=== PATIENT | male | born 1970 | race Caucasian/White ===

== ENCOUNTER 2024-10-03 10:57 | Emergency (ER) | payer OTHER, SELFPAY ==
[2024-10-03 11:12] VITALS: BP 123/87
[2024-10-03 11:28] LABS: % Basophils 0.4 % (0-2); % Eosinophils 0.6 % (0-6); % Immature Granulocytes 0.4 % (0-0.5); % Lymphocytes 14.2 % (20.5-51.1); % Monocytes 8.2 % (1.7-9.3); % Neutrophils 76.2 % (42.2-75.2); Absolute Eosinophils 0.1 10^3/uL (0-0.7); Absolute Lymphocytes 1.1 10^3/uL (1.2-3.4); Absolute Monocytes 0.7 10^3/uL (0.1-0.6); Absolute Neutrophils 6.1 10^3/uL (1.4-6.5); Hematocrit 42.2 % (39.0-52.0); Hemoglobin 14.8 g/dL (13.0-18.0); Mean Corp Hgb Conc. 35.1 g/dL (33.0-37.0); Mean Corpuscular Hgb 32.2 pg (27.0-31.0); Mean Corpuscular Volume 91.7 fL (80.0-94.0); Nucleated Red Blood Cells % 0 % (-); Platelet Count 225 10^3/uL (130-400); Red Cell Dist. Width 13.2 % (11.5-14.5)
[2024-10-03 11:50] LABS: ALT (SGPT) 33 U/L (0-50); AST (SGOT) 30 U/L (17-59); Albumin 4.1 g/dl (3.5-5.0); Alkaline Phosphatase 54 U/L (38-126); Blood Urea Nitrogen 14 mg/dl (9-20); Calcium 9.1 mg/dl (8.4-10.2); Carbon Dioxide 26 mmol/L (22-30); Chloride 103 mmol/L (98-107); Glucose 119 mg/dl (70-99); Lipase 142 U/L (23-300); Potassium 4.2 mmol/L (3.5-5.1); Sodium 137 mmol/L (135-145); Total Bilirubin 0.7 mg/dl (0.2-1.3); Total Protein 6.9 g/dl (6.3-8.2); eGFR > 60.00
[2024-10-03] MEDS: OMNIPAQUE 50 ML PO (12:51)
[2024-10-03 12:54] VITALS: BP 128/85
--- NOTE | 2024-10-03 13:20 | ED.GENMED ---
History of Present Illness
General
Chief Complaint: Abdominal Pain
Source: patient
Time Seen by Provider: 10/03/24 12:33
History of Present Illness
History of Present Illness:
54-year-old male with past medical history of hyperlipidemia and GERD presenting to the ER for evaluation of lower abdominal pain that has been ongoing for the last 3 days accompanied with a few episodes of loose stool, patient reporting pain seems
to be a little bit worse on the right lower part of his abdomen compared to the left when he presses but otherwise states at rest just has some generalized discomfort. He denies any fevers, chills, rigors, urinary symptoms, back or flank pain,
nausea or any other concerns. Denies any history of similar. Surgical history noncontributory. Patient does note he has had a colonoscopy in the past which did not reveal any abnormalities. He does note that patient's daughter was recently
diagnosed with ulcerative colitis which was a new diagnosis for family members.
Past History
Past History
ED Past Medical History: GERD, Hypercholesterolemia and Psychiatric
ED Past Surgical History: Orthopedic
Social History
Tobacco: Non-smoker
Alcohol: Occasional
Drug: None
Personal:
Living: with family
Employment: Employed
Review of Systems
Review of Systems
All Other Systems: ROS reviewed and negative except as documented in HPI and ROS
Phy Exam
Physical Exam
Physical Exam:
GENERAL: Alert , in no apparent distress
EYE: clear conjunctiva b/l
HEAD: NCAT
ENT: mmm.
CARDIAC: Regular rate and rhythm .
LUNGS: Clear breath sounds bilaterally, no acute respiratory distress, no wheezes/rales/rhonchi
ABDOMEN: Soft, mild tenderness within the right lower quadrant and suprapubic region, no r/g, no cvat
NEUROLOGICAL: Alert and oriented
SKIN: Warm and dry, skin intact.
MUSCULOSKELETAL: No edema, well perfused.
PSYCH: Normal and appropriate interaction.
Scores
Heart Failure Risk
Heart Failure Risk Score: Not Applicable
Heart Score for Chest Pain Patients
STEMI patient?: Not applicable
Withdrawal Assessment of Alcohol
Withdrawal Assessment Completed?: Not applicable
Course
Orders/Labs/Results
Orders:
Orders
10/03/24 11:18
Complete Blood Count/With Diff Urgent
Comprehensive Metabolic Panel Urgent
Lipase Urgent
10/03/24 12:35
CT Abd/pel W Iv And Oral Contr Urgent
Comment:
Reason For Exam: diffuse lower abd pain
Iohexol [Omnipaque] See Protocol PO NOW STA
10/03/24 13:59
Urinalysis Reflex To Culture Urgent
Date Specimen was Collected: 10/03/24
Time Specimen was Collected: 13:47
Abnormal Lab Results
10/03/24
11:18
RBC 4.60 L 10^6/uL
(4.70-6.10)
MCH 32.2 H pg
(27.0-31.0)
Absolute Lymphs (auto) 1.1 L 10^3/uL
(1.2-3.4)
Absolute Monos (auto) 0.7 H 10^3/uL
(0.1-0.6)
Neutrophils % 76.2 H %
(42.2-75.2)
Lymphocytes % 14.2 L %
(20.5-51.1)
Glucose 119 H mg/dl
(70-99)
10/03/24 11:18
10/03/24 11:18
Vital Signs
Initial and Last Documented VS:
Initial Vital Signs
Temp Pulse Resp BP Pulse Ox
98.3 F 55 16 123/87 99
10/03/24 11:12 10/03/24 11:12 10/03/24 11:12 10/03/24 11:12 10/03/24 11:12
Last Documented Vital Signs
Temp Pulse Resp BP Pulse Ox
98.3 F 78 16 122/77 99
10/03/24 11:12 10/03/24 14:00 10/03/24 14:00 10/03/24 14:00 10/03/24 11:12
MDM/Problems Addressed
Differential Diagnosis Includes:
Appendicitis, diverticulitis, colitis, ileitis, renal/ureteral colic
MDM/Problems Addressed:
54-year-old male presenting the ER for evaluation of 3 days of lower abdominal pain, on my exam pain seems to be a little bit more right-sided than left. No fevers or infectious symptoms. Hemodynamically stable. Declining anything for pain at
this time. Labs initiated in triage are reassuring with no leukocytosis. Chemistry unremarkable. Will check CT scan for further evaluation. Disposition pending.
*Radiology
Radiology exam reviewed: radiology read reviewed
*Pulse Oximetry
Patient hypoxic: no
*Critical Care Note
Total Time (30-74mins, 75-104mins- exclusive of procedures): Not Applicable
Patient Management
Escalation/DeEscalation of care consider admission/obs:
Patient's CAT scan shows acute uncomplicated sigmoid diverticulitis. Patient is without fever, normal white blood cell count and pain is under control. Will send home with prescription for Augmentin. Patient encouraged to follow-up with primary
care as well as GI. Stable for discharge home and aware of return precautions.
ED Attending Note
-
Portions of this chart may have been created with voice recognition software.� Occasional wrong word or��sound alike� substitutions may have occurred due to the inherent limitations of voice recognition software.
Discharge Plan
Departure
Patient Disposition: Home (Routine Discharge)
Date of Disposition: 10/03/24
Time of Disposition: 16:06
Patient with high blood pressure during this ER visit?: No
Discharge Problem:
Diverticulitis
Instructions: Diverticulitis (DC)
Prescriptions:
New
amoxicillin-pot clavulanate 875-125 mg tablet
1 tab PO BID 10 Days Qty: 20 0RF
No Action
famotidine 40 MG tablet
40 mg PO QPM
Prozac
1 tab PO DAILY
Referrals:
Kenneth Diana PA-C [Family Provider] -
Interventions
Interventions:
*Risk Screen - Suicide Last Done: 10/03/24 12:32
*General Assessment Last Done: 10/03/24 15:22
*Neglect/Abuse Screening Last Done: 10/03/24 12:32
ED- Fall Risk Assessment Last Done: 10/03/24 12:34
*ED COVID-19 Vaccine History Last Done: 10/03/24 12:32
QA-Vthmyy-Akyvermobi Assessment Last Done: 10/03/24 12:33
Discharge Date and Time
Print Language: PERUVIAN
[2024-10-03 14:00] VITALS: BP 122/77
[2024-10-03 14:33] LABS: Urine Albumin Negative (Neg - Trace); Urine Bilirubin Negative (Negative); Urine Character Clear (Clear); Urine Color Yellow; Urine Glucose Negative (Negative); Urine Ketone Negative (Negative); Urine Leukocyte Negative (Negative); Urine Nitrite Negative (Negative); Urine Occult Blood Negative (Negative); Urine Urobilinogen Negative (Neg - 1+)
[2024-10-03 16:26] VITALS: BP 127/81
== END 2024-10-03 16:27 | disposition home or self-care (01) ==
LOC: EMR 10:57
PROVIDERS: Emergency Medicine; Physician Assistant Medical; EMERGENCY PHYSICIAN Emergency Medicine; FAMILY PHYSICIAN Physician Assistant Medical
DX: K57.32 Diverticulitis of large intestine without perforation or abscess without bleeding (principal); E78.00 Pure hypercholesterolemia, unspecified; K21.9 Gastro-esophageal reflux disease without esophagitis
CPT/HCPCS: 99284; 74177; 80053; 81003; 83690; 85025; Q9967